=== PATIENT | female | born 1950 | race Caucasian/White ===

== ENCOUNTER 2023-12-28 14:34 | Inpatient (IN) | payer MEDICARE, SELFPAY ==
[2023-12-28] VITALS (14 sets, daily range): BP systolic 129–185; BP diastolic 72–105; PULSE 84–132; RESP 15–20; TEMP 36.3–36.6; O2SAT 94–100
--- NOTE | ~2023-12-28 | XR_ITS ---
EXAMINATION: XR chest 1V portable Exam Date/Time: 12/28/2023 14:40 CDT HISTORY: weakness Comparison: None. RESULT: Lines, tubes, and devices: None. Lungs and pleura: Leftward rotation. Mild diffuse interstitial opacities. Left costophrenic angle bl unting. Cardiomediastinal silhouette: Unremarkable. Other: No acute osseous or upper abdominal finding. IMPRESSION: Mild interstitial edema. Small left pleural effusion. Reviewed, dictated and finalized at location K.
--- NOTE | ~2023-12-28 | CT_ITS ---
EXAMINATION: CTA brain carotid DATE: 12/28/2023 16:08 INDICATION: left leg weakness TECHNIQUE: Computed tomographic angiography (CTA) of the head and neck was performed with 100 mL Omni paque-350 intravenous contrast. Automated exposure control and iterative reconstruction technique wer e employed. The dose-length product was 979.63 mGy-cm. Maximum intensity projection and volume rende red 3D-reconstructions were created by the technologist on a separate workstation. COMPARISON: CT brain, same date. FINDINGS: CTA HEAD: No large vessel occlusion, aneurysm, high flow vascular malformation, nidus or extravasation. Calcifi ed plaque in the bilateral cavernous carotids without severe stenosis. Multifocal areas of mild and m oderate noncalcified atherosclerotic narrowing in the intracranial vessels. CTA NECK: Aortic arch and proximal great vessels: Atherosclerotic calcifications at the visualized aortic arch and proximal great vessels. Right common carotid, carotid bifurcation, and internal carotid artery: Minimal calcified plaque.Ther e is 0% stenosis of the proximal right internal carotid artery relative to normal distal artery lumen diameter (NASCET criteria). Left common carotid, carotid bifurcation, and internal carotid artery: No plaque.There is 0% stenosis of the proximal left internal carotid artery relative to normal distal artery lumen diameter (NASCET criteria). Vertebral arteries: No significant plaque or stenosis. Vertebral arteries co-dominant. Other findings: Subcentimeter right thyroid lobe nodule which requires no additional evaluation at th is time. Chronic bilateral maxillary sinusitis. IMPRESSION: No large vessel intracranial occlusion, high-grade intracranial stenosis, or aneurysm. No carotid or vertebral artery occlusion, dissection, or significant stenosis. Reviewed, dictated and finalized at location K. IMPRESSION: No large vessel intracranial occlusion, high-grade intracranial stenosis, or an eurysm. No carotid or vertebral artery occlusion, dissection, or significant stenosis.
--- NOTE | ~2023-12-28 | CT_ITS ---
EXAMINATION: CT brain wo con DATE: 12/28/2023 16:08 INDICATION: left leg weakness . TECHNIQUE: Computed tomography (CT) of the head was performed without intravenous contrast. The mA wa s adjusted according to patient size. Iterative reconstruction technique was employed. The dose-lengt h product was 605.33 mGy-cm. COMPARISON: None. FINDINGS: No acute intracranial hemorrhage or extra-axial fluid collection. No hydrocephalus, mass, or herniation. No acute ischemic infarct. Unremarkable dural venous sinus attenuation. No acute osseous abnormality. Bilateral maxillary opacification with surrounding osseous sclerosis, the remaining aerated spaces ar e clear. Mild atrophy and moderate chronic white matter change. Atherosclerotic intracranial calcification. IMPRESSION: No acute intracranial process. Chronic bilateral maxillary sinusitis. Reviewed, dictated and finalized at location K.
--- NOTE | ~2023-12-28 | MR_ITS ---
EXAMINATION: MR brain/brain stem wo/w con DATE: 12/29/2023 12:34 INDICATION: Transient ischemic attack. TECHNIQUE: Magnetic resonance imaging (MRI) of the brain and brainstem was performed without and with 20 mL MultiHance intravenous contrast. COMPARISON: None. FINDINGS: There is an acute infarct involving the posterior limb right internal capsule. There are sc attered areas of nonspecific increased T2-weighted signal intensity in the cerebral white matter. The re is no intracranial hemorrhage or abnormal mass lesion. The ventricles are normal in size. There is mucosal thickening in the paranasal sinuses including complete opacification of the maxillary sinuse s with thickening of the sinus esteves, consistent with chronic sinusitis. The mastoid air cells are no rmal. IMPRESSION: 1. Acute infarct involving the posterior limb right internal capsule. 2. Mild nonspecific cerebral white matter disease, which likely represents chronic small vessel ische joaquin disease. 3. Chronic sinusitis. Reviewed, dictated and finalized at location A. IMPRESSION: 1. Acute infarct involving the posterior limb right internal capsule. 2. 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 3. Chronic sinusitis.
--- NOTE | 2023-12-28 14:39 | ECG_ITS ---
SEE SCANNED COPY FOR CONFIRMED REPORT MTDD
[2023-12-28 14:52] LABS: Basophils Absolute Auto 0.1 K/mm3 (0.0-0.1); Basophils Percent Auto 0.6 % (0.2-1.2); Eosinophils Absolute Auto 0.1 K/mm3 (0-0.3); Hematocrit 45.4 % (37.0-47.0); Hemoglobin 14.6 g/dL (12.0-15.0); Immature Granulocyte Absolute 0.04 K/mm3 (0.00-0.031); Immature Granulocyte Percent A 0.4 % (0-0.5); Lymphocytes Absolute Auto 1.38 K/mm3 (0.9-3.2); Lymphocytes Percent Auto 13.2 % (18.3-44.2); Mean Corpuscular HGB Conc 32.2 g/dl (32-36); Mean Corpuscular Hemoglobin 27.5 pg (26-34); Mean Corpuscular Volume 85.5 fl (80-100); Mean Platelet Volume 9.1 fl (7.4-10.4); Monocytes Absolute Auto 0.4 K/mm3 (0.1-0.6); Monocytes Percent Auto 3.8 % (2.6-8.5); Neutrophils Absolute Auto 8.5 K/mm3 (1.3-6.7); Platelet Count Result 324 k/mm3 (150-375); Red Blood Count 5.31 M/mm3 (4.2-5.4); Red Cell Distribution Width 13.2 % (11.5-14.5); White Blood Count 10.5 K/mm3 (4.5-10.0)
--- NOTE | 2023-12-28 14:53 | ED.EXTPRO ---
HPI - Extremity Problem General Chief complaint: Extremity Problem,Nontraumatic Stated complaint: LLE weakness, History of Present Illness HPI Narrative: 73-year-old female presenting to the emergency department for evaluation for left lower extremity weakness. Patient states that she woke up this morning she was not having any left leg weakness but developed over the course of the day. Patient called EMS for this and was found to be an a rapid heart rate, patient arrived in AFib with heart rate in the 130s. Patient denies any chest pain or shortness of breath. Patient denies any prior history of CVA. Patient denies any prior history of atrial fibrillation with RVR Related Data Home Medications Medication Instructions Recorded Confirmed No Home Medications 12/28/23 12/28/23 Allergies Allergy/AdvReac Type Severity Reaction Status Date / Time Sulfa (Sulfonamide Allergy Unknown Verified 12/28/23 15:10 Antibiotics) Review of Systems Review of Systems: All systems reviewed & are unremarkable except as noted in HPI and below PMFSH Social History Social History Smoking status: Never smoker Alcohol intake: never Substance use: never Substance use type: does not use Do You Feel Safe in your Home?: Yes Lack of Transportation: No Lack of Food: Never True Current Housing: I Have Housing Concerned About Future Housing: No Difficulty Paying Gas/Electric Bills: No Difficulty Paying for Meds: No Currently Unemployed: No Education: Bachelor's Degree Difficulty w/ Childcare or Family Care: No Spiritual care concerns: No Exam Narrative: APPEARANCE: Well appearing, no pain, no distress, well-nourished. HEAD: normocephalic, atraumatic. EYES: PERRLA/EOMI, conjunctivae clear. NOSE: Normal no drainage EARS:TMS clear with good light reflex. THROAT: Pharynx clear, no exudate. NECK: Supple. No adenopathy, no masses. RESPIRATORY: Airway patent, respirations nonlabored. Clear to auscultation bilaterally, no rales, rhonchi, wheezing. CARDIOVASCULAR: Regular rate and rhythm without murmurs rubs or gallops. ABDOMINAL: Soft, nontender, nondistended, normal bowel sounds MUSCULOSKELETAL: Moves all extremities. Strength/ROM intact, No edema, No calf tenderness. NEURO: Alert. Cranial nerves II through XII intact. No focal neurologic deficit SKIN: Warm, dry. Normal Color Course Vital Signs Vital signs: Vital Signs Temperature 97.3 F L 05/04/24 14:35 Pulse Rate 132 H 12/28/23 14:35 Respiratory Rate 16 12/28/23 14:35 Blood Pressure 148/89 H 12/28/23 14:35 Pulse Oximetry 98 12/28/23 14:35 Temperature 97.5 F L 12/28/23 18:42 Pulse Rate 98 12/28/23 18:42 Respiratory Rate 18 12/28/23 18:42 Blood Pressure 149/99 H 12/28/23 18:42 Pulse Oximetry 100 12/28/23 18:42 MDM - Extremity (Nontraumatic) MDM Narrative Medical decision making narrative: 73-year-old female presented emergency department for evaluation of AFib with RVR. The patient is afebrile with no leukocytosis and a stable hemoglobin. Patient's INR is 1.0. He patient had no significant acute abnormalities on her CMP, patient's troponins were negative. Patient does describe symptoms that are concerning for TIA. Head CT and CTA were negative for acute intracranial abnormality. Chest x-ray showed mild interstitial edema. Case was discussed with the hospitalist patient was accepted for admission. MRI was ordered for further TIA workup. Differential Diagnosis Differential diagnosis: Likely other (TIA, CVA) Lab Data 12/28/23 14:44 12/28/23 14:44 Labs: Lab Results 12/28/23 Range/Units 14:44 WBC 10.5 H (4.5-10.0) K/mm3 RBC 5.31 (4.2-5.4) M/mm3 Hgb 14.6 (12.0-15.0) g/dL Hct 45.4 (37.0-47.0) % MCV 85.5 (80-100) fl MCH 27.5 (26-34) pg MCHC 32.2 (32-36) g/dl RDW 13.2 (11.5-14.5) % Plt Count 324 (150-375) k/mm3 MPV 9.1 (7.4-10.4) fl Im
[2023-12-28 15:00] LABS: Alanine Aminotransferase 18 U/L (6-35); Albumin Level 4.3 g/dL (3.5-5.1); Alkaline Phosphatase 90 U/L (38-126); Anion Gap 10 mmol/L (4-12); Aspartate Amino Transferase 24 U/L (14-36); Bilirubin,Total 0.6 mg/dL (0.2-1.3); Blood Urea Nitrogen 21 mg/dL (7-17); Calcium 9.4 mg/dL (8.4-10.2); Carbon Dioxide 20 mmol/L (22-30); Chloride 112 mmol/L (98-107); Estimated CRCL calculation 51 ml/min; Estimated Glomerular Filt Rate 55; Glucose 181 mg/dL (65-110); Lipase 105 U/L (23-300); Potassium 3.7 mmol/L (3.4-5.0); Prothrombin Time 13.6 Seconds (11.1-14.7); Sodium 142 mmol/L (137-145)
[2023-12-28 15:11] LABS: Troponin I < 0.012 ng/mL (0.000-0.034)
[2023-12-28] MEDS: dilTIAZem HCl INJ 25 MG/5 ML VIAL 10 MG IV PUSH (15:13)
[2023-12-28] MEDS: dilTIAZem 100 MG/100 ML 100 MG/100 ML BAG IV CONT (15:13)
--- NOTE | 2023-12-28 15:34 | PC.NURSE ---
Pt c/o hot flash & red face Noted pt to have redness to neck & face. Dr. Dawson informed. Exam pt will continue with Rossana jeff
--- NOTE | 2023-12-28 16:35 | PC.NURSE ---
desk monitor continues to display A-Fib. Pt states hot flashes improved. Resting quietly.
--- NOTE | 2023-12-28 17:40 | ECG_ITS ---
SEE SCANNED COPY FOR CONFIRMED REPORT MTDD
--- NOTE | 2023-12-28 17:41 | PC.NURSE ---
RN spoke with Dr. Dawson concerning acceptable heart rate. Per Dr. Dawson would like heart rate below 100
--- NOTE | 2023-12-28 18:00 | PC.NURSE ---
IMU unable to take report at this time
[2023-12-28 18:20] LABS: Troponin I < 0.012 ng/mL (0.000-0.034)
--- NOTE | 2023-12-28 18:41 | ADMGEN ---
This patient, Ciara Barry, was admitted to IMU Room 207-01. Patient/family oriented to hospital policies and general routines including ID bracelet, bed and alarms, visiting hours, pain management, procedures, bathroom and other care routines, personal items, smoking policy, room service/diet, and visiting hours. Information on how to activate the Rapid Response Team has been discussed. Patient/Family are encouraged to report perceived risks to care and to ask questions if they do not understand what they are told or what they should do.
--- NOTE | 2023-12-28 19:08 | PM.IMHP ---
H&P: HPI History of Present Illness Date/Time: 12/28/23 18:30 Chief Complaint: Fall, left leg weakness. Narrative: This is a pleasant 73-year-old right-handed female with no reported medical history (she has not seen a doctor for over 5 years) who presented to the emergency department via EMS from home for evaluation after a fall and left leg weakness. The patient provides the following history. She reports feeling in her usual state of health when she got up this morning and she spent some time on the back patio enjoying the weather before going inside to get something to eat. When she got up from the lounge chair she noticed that she was having difficulties walking because her left leg was not doing what she wanted to do. The leg felt a bit weak with mild tingling. She made it to the kitchen at which time her son-in-law noticed that she was having difficulties getting around. He had to help her to the bathroom and when she was situated he went to the other room. While trying to sit down on the toilet she reports that she fell onto her buttocks and she was unable to get herself up and EMS was summoned. At that time her son-in-law noticed that the left side of her mouth seemed to be a bit droopy. She denies injury in the fall and states there was no head trauma or loss of consciousness. She is still having some difficulties with her left leg though it seems to be improved compared to earlier. Only her left leg is affected; she denies coordination issues with her left arm. She denies vertigo, visual changes, difficulty speaking and swallowing, palpitations, sensations of racing heart, chest pain, shortness a breath, nausea, vomiting, and sweats. In the ED: She was in rapid atrial fibrillation on arrival which is a new diagnosis for her. Blood pressures have been ranging in the 130s to 160 systolic. Labs were significant for a WBC count of 10.5, chloride 112, carbon dioxide 20, BUN 21, creatinine 1.00, glucose 181, troponin less than 0.012. Brain CT showed no acute intracranial process and chronic bilateral maxillary sinusitis. Head and neck CTA showed no large vessel intracranial occlusion, high-grade intracranial stenosis, aneurysm, or carotid or vertebral artery occlusion, dissection, or significant stenosis. She was started on a Cardizem drip and is being admitted in this setting for further workup. Review of Systems Review of Systems: Twelve systems were reviewed. No recent cold or flu symptoms. No known history of cardiac disease. Family members report that she snores softly. She denies paroxysmal nocturnal dyspnea. No daytime hypersomnolence. She has not had exertional chest pain or shortness of breath. She has no sensations of racing heart. Denies lower extremity edema and orthopnea. No history of thyroid disease. Denies significant caffeine and alcohol intake. Except as documented all other systems were reviewed and are negative. [facility] Past Medical History Medical History (Updated 12/28/23 @ 22:30 by Gunjan Davalos PA-C) Shingles Surgical History Surgical History (Updated 12/28/23 @ 22:28 by Gunjan Davalos PA-C) History of ventral hernia repair Social History Social History (Updated 12/28/23 @ 22:28 by Gunjan Davalos PA-C) Social History: Surrogate medical decision maker: Geni Epperson, daughter Code status: Full code. Smoking status: Never smoker Alcohol intake: never Substance use: never Substance use type: does not use Do You Feel Safe in your Home?: Yes Lack of Transportation: No Lack of Food: Never True Current Housing: I Have Housing Concerned About Future Housing: No Difficulty Paying Gas/Electric Bills: No Difficulty Paying for Meds: No Currently Unemployed: No Education: Bachelor's Degree Difficulty w/ Childcare or Family Care: No Spiritual care concerns: No Meds Home Medications and Allergies Home Medications Medication Instructions Recorded Confirmed T
[2023-12-28 21:14] LABS: Troponin I < 0.012 ng/mL (0.000-0.034)
[2023-12-29] VITALS (20 sets, daily range): BP systolic 130–168; BP diastolic 62–97; PULSE 59–93; RESP 16–20; TEMP 36.1–36.8; O2SAT 94–99
[2023-12-29] MEDS: dilTIAZem 100 MG/100 ML 100 MG/100 ML BAG 10 MG IV CONT (01:08)
[2023-12-29 04:04] LABS: Anion Gap 8 mmol/L (4-12); Blood Urea Nitrogen 16 mg/dL (7-17); Calcium 9.4 mg/dL (8.4-10.2); Carbon Dioxide 21 mmol/L (22-30); Chloride 113 mmol/L (98-107); Cholesterol 204 mg/dL (0-200); Estimated CRCL calculation 57 ml/min; Estimated Glomerular Filt Rate > 60; Glucose 123 mg/dL (65-110); HDL Direct 50 mg/dL; Magnesium 2.2 mg/dL (1.6-2.3); Potassium 3.7 mmol/L (3.4-5.0); Sodium 142 mmol/L (137-145); Triglycerides 117 mg/dL (<150)
[2023-12-29 04:15] LABS: LDL Cholesterol Direct 123 mg/dL
--- NOTE | 2023-12-29 05:48 | PCRCNOTE ---
Apnea link not completed last night, will be applied tonight (12/29/23)
--- NOTE | 2023-12-29 08:56 | ECG_ITS ---
SEE SCANNED COPY FOR CONFIRMED REPORT MTDD
--- NOTE | 2023-12-29 09:03 | PM.IMPN ---
Progress Note: A&P Assessment and Plan (1) Atrial fibrillation with rapid ventricular response: Code(s): I48.91 - Unspecified atrial fibrillation Status: Acute Assessment and Plan: 12/28 rate controlled on diltiazem 10 milligram/hour so attempt transition to p.o. diltiazem 60 mg po q 6 hr prior to MRI brain 12/28 add apixaban Cardiology consulted regarding newly diagnosed atrial fibrillation with probable stroke (2) Acute left hemiparesis: Code(s): G81.94 - Hemiplegia, unspecified affecting left nondominant side Status: Acute Assessment and Plan: Suspect cardioembolic stroke secondary to atrial fibrillation 12/28 MRI brain pending 12/28 ordered PT/OT/ST and evaluation for rehab (3) Hyperglycemia: Code(s): R73.9 - Hyperglycemia, unspecified Status: Acute Assessment and Plan: Hemoglobin A1c ordered (4) Hyperlipidemia: Code(s): E78.5 - Hyperlipidemia, unspecified Status: Acute Assessment and Plan: 12/28 Start atorvastatin (5) Elevated blood pressure reading: Code(s): R03.0 - Elevated blood-pressure reading, without diagnosis of hypertension Status: Acute Assessment and Plan: Controlled on diltiazem Subjective Date/time seen: 12/29/23 09:03 Interval history: 73-year-old female admitted 12/27 with new onset left facial droop slurred speech left-sided weakness. Atrial fibrillation with rapid ventricular rate at 131 on admission EKG. Treated with diltiazem drip with good rate control and at about 80 with 10 milligram/hour. 12/28 Left facial droop and left-sided weakness persist with mild slurring of speech. Tolerated a few bites of oatmeal and sips of water without choking or coughing. Denied chest pain shortness of breath palpitations edema. Denied GI or issues. Denied abnormal bleeding. Does not smoke or drink or use recreational substances. Review of Systems Review of Systems: All systems reviewed & are unremarkable except as noted in HPI and below Exam Narrative: SKIN: Anthony complexion with telangiectasias over forehead cheeks nose and chin. HEENT: PERRL, sclerae nonicteric, pharyngeal mucosa pink and intact NECK: No JVD CHEST: Clear to auscultation. Normal effort. HEART: NL S1/S2, IRREGULAR, NO AUDIBLE MURMUR ABDOMEN: BS+, soft, nontender, no mass, no bruits EXTREMITIES: No cyanosis, edema, or clubbing NEUROLOGIC: CN with mild left facial droop, DTRs increased left biceps, Babinski questionable upgoing on left, strength to dorsiflexion and plantar flexion 4/5 on left, cake decorator 4/5 on left, left upper extremity drift, finger-nose with difficulty on the left. Intact on the right. MUSCULOSKELETAL: No gross deformity to visual inspection. PSYCH: Alert. Oriented to person, place, and time. Objective Data Vital Signs Vital Signs: Vital Signs - 24 hr 12/28/23 14:35 12/28/23 15:13 12/28/23 15:21 Temperature 97.3 F L Pulse Rate 132 H 98 98 Respiratory Rate 16 20 Blood Pressure 148/89 H 129/72 129/72 Pulse Oximetry 98 100 Oxygen Delivery 12/28/23 16:32 12/28/23 15:46 12/28/23 16:33 Temperature 97.8 F Pulse Rate 102 H 101 H 94 Respiratory Rate 18 15 Blood Pressure 170/100 H 159/88 H 157/105 H Pulse Oximetry 94 100 Oxygen Delivery 12/28/23 16:45 12/28/23 17:02 12/28/23 17:17 Temperature 97.8 F Pulse Rate 95 99 97 Respiratory Rate 15 18 17 Blood Pressure 163/101 H 156/80 H Pulse Oximetry 100 98 100 Oxygen Delivery 12/28/23 17:31 12/28/23 18:07 12/28/23 18:42 Temperature 97.9 F 97.9 F 97.5 F L Pulse Rate 96 88 98 Respiratory Rate 16 20 18 Blood Pressure 174/89 H 159/85 H 149/99 H Pulse Oximetry 100 100 100 Oxygen Delivery 12/28/23 18:40 12/28/23 22:00 12/28/23 22:00 Temperature 97.8 F Pulse Rate 84 Respiratory Rate 16 Blood Pressure 185/94 H 178/90 H Pulse Oximetry 94 Oxygen Delivery Room Air 12/28/23 20:00 12/29/23 00:00 12/29/23 01:08 Temperature
[2023-12-29 09:27] LABS: Hemoglobin A1C 5.3 % (<5.7)
[2023-12-29] MEDS: APIXABAN 5 MG TABLET PO ×2 (09:45→20:52)
[2023-12-29] MEDS: dilTIAZem HCL 60 MG TABLET PO ×4 (09:45→23:30)
--- NOTE | 2023-12-29 10:16 | PM.CNCAR ---
Assessment and Plan Assessment and plan (1) Acute left hemiparesis: Code(s): G81.94 - Hemiplegia, unspecified affecting left nondominant side Status: Acute Assessment and Plan: Secondary to CVA likely cardioembolic from AFib. MRI pending (2) Hyperlipidemia: Code(s): E78.5 - Hyperlipidemia, unspecified Status: Acute Assessment and Plan: Statin added (3) Elevated blood pressure reading: Code(s): R03.0 - Elevated blood-pressure reading, without diagnosis of hypertension Status: Acute Assessment and Plan: Likely has undiagnosed hypertension. Some degree of permissive hypertension will be allowed due to the acute stroke but gradually over time will need to optimize. For now will use diltiazem for blood pressure control in addition to heart rate control (4) Atrial fibrillation with rapid ventricular response: Code(s): I48.91 - Unspecified atrial fibrillation Status: Acute Assessment and Plan: On diltiazem drip. This is of unknown duration. New diagnosis. Agree with anticoagulation with Eliquis 5 mg p.o. b.i.d. if okay with Neurology. Will pursue rate control for now. 2D echocardiogram Doppler is ordered will be reviewed. Further changes, additions workup and recommendations depending on the results of the echo. There is some concern that she may have a cardiomyopathy given the fact that she had AFib with RVR for unknown duration but no evidence of heart failure. Long-term decisions regarding rate versus rhythm control will be made depending on results of tests and response to treatment. History of Present Illness History of Present Illness Consult date/time: 12/29/23 10:16 Requesting physician: Sinan Carlisle MD Consult reason: atrial fibrillation Reason For Visit: AFib w/ RVR, L Leg Weakness Narrative: Reason for consultation: Atrial fibrillation Date of service 12/29/2023 Requesting provider: Dr. Carlisle History: Patient is a 73-year-old female who moved to this area about 4-5 years ago and lives with her daughter. She helps take care of grandchildren. She has not establish with a doctor since moving from [facility]. She reportedly has a history of white coat hypertension and had shingles about 5 years ago and was seen physicians routinely around that time. She presented to hospital yesterday because of some left-sided weakness especially noted involving the left lower leg. She states that it started around noon. Weakness has persisted but may be a little bit better. No other symptoms. TPA was not given. She was found to be in atrial fibrillation with rapid ventricular response and started on diltiazem drip. CT scan showed no acute stroke an MRI is pending. This morning she still has some left-sided weakness/in coordination. She otherwise denies any cardiac symptoms of chest pain, shortness of breath, syncope, presyncope, paroxysmal nocturnal dyspnea, orthopnea, edema, bleeding problems, palpitations. Review of Systems Review of Systems: All systems reviewed & are unremarkable except as noted in HPI and below Constitutional: Constitutional: Denies body ache(s) Eyes: Eyes: Denies blurry vision ENT: Reports Normal hearing present Cardiovascular: Cardiovascular: Denies chest pain and Denies palpitations Respiratory: Respiratory: Denies dyspnea Gastrointestinal: Gastrointestinal: Denies abdominal pain Genitourinary: Genitourinary: Denies hematuria Musculoskeletal: Musculoskeletal: Denies arthralgias Integumentary/Breasts: Skin/Breast: Denies dry skin Neurologic: Reports abnormal gait Comments: Left-sided weakness Psychiatric: Psychiatric: Denies anxiety Endocrine: Endocrine: Denies excessive sweating Hematologic/Lymphatic: Hematologic/Lymphatic: Denies easy bleeding Allergic/Immunologic: Allergic/Immunologic: Denies GI upset with certain foods PMFSH Past Medical History Medical History (Reviewed 0
--- NOTE | 2023-12-29 10:18 | PCSTNOTE ---
Please refer to the Bedside Swallow Evaluation in the EMR. Please note, silent aspiration cannot be ruled out at bedside.
[2023-12-29] MEDS: ACETAMINOPHEN 325 MG TABLET 650 MG PO (20:51)
[2023-12-29] MEDS: MELATONIN 5 MG TABLET PO (20:53)
[2023-12-29 21:15] LABS: Appearance Urine Cloudy (Clear); Bacteria Urine None Seen /hpf; Bilirubin Urine Negative (Negative); Blood Urine Negative (Negative); Color Urine Yellow (Yellow); Glucose Urine UA Negative (Negative); Ketones Urine Negative (Negative); Leukocyte Esterase Ur Trace LEU/UL (Negative); Nitrate Urine Negative (Negative); Non Pathogenic Casts 0-2; Protein Urine Negative (Negative); RBC Urine 0-2 /hpf (0-2); Specific Grav Ur 1.029 (1.001-1.035); Squamous Epithelial Cell Urine Occasional /hpf (Few); Urobilinogen Urine 0.2 mg/dL (<2.0); pH Urine 5.5 (5.0-9.0)
--- NOTE | 2023-12-29 21:28 | PC.NURSE ---
This patient, Ciara Barry, was transferred to [facility] on 12/29/23 at 2125. Personal belongings sent with patient. Report given to November RAJESH. Appropriate documentation sent with patient.
[2023-12-29 21:48] LABS: Add Urine Microscopic? YES
[2023-12-30] VITALS (9 sets, daily range): BP systolic 124–140; BP diastolic 66–86; PULSE 63–83; RESP 16–18; TEMP 35.9–36.6; O2SAT 97–98
--- NOTE | 2023-12-30 03:05 | PCRCNOTE ---
at 2230 12/29/2023- patient and patient family member refused apnealink. would like to try and rest tonight without having to do the test. can try again on 12/30/23 PM.
[2023-12-30] MEDS: dilTIAZem HCL 60 MG TABLET PO ×4 (05:18→23:03)
[2023-12-30] MEDS: APIXABAN 5 MG TABLET PO ×2 (09:28→20:50)
[2023-12-30] MEDS: ATORVASTATIN 20 MG TABLET PO (09:28)
--- NOTE | 2023-12-30 09:36 | PM.PNCARD ---
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 Some degree of permissive hypertension will be allowed due to the acute stroke but gradually over time will need to optimize. For now will use diltiazem for blood pressure control in addition to heart rate control (4) Atrial fibrillation with rapid ventricular response: Code(s): I48.91 - Unspecified atrial fibrillation Status: Acute Assessment and Plan: On diltiazem drip. This is of unknown duration. New diagnosis. Now on 60 mg of diltiazem orally Q 6. Will transition to either long-acting diltiazem or metoprolol depending on the results of the echocardiogram. If EF is preserved, will use diltiazem. If there is reduction in ejection fraction, will transition to metoprolol. Continue Eliquis. Echo pending. Will pursue rate control for now. There is some concern that she may have a cardiomyopathy given the fact that she had AFib with RVR for unknown duration but no evidence of heart failure. Long-term decisions regarding rate versus rhythm control will be made depending on results of tests and response to treatment. Subjective Date/time seen: 12/30/23 09:36 Interval history: 73-year-old female admitted slurred speech left-sided weakness. Found to be in atrial fibrillation. Date of service 12/30/2023: Transfer to medicine. Heart rate is controlled. On oral diltiazem. Echo pending. No chest pain or shortness breath. Weakness continues but is better Review of Systems Review of Systems: All systems reviewed & are unremarkable except as noted in HPI and below Constitutional: Constitutional: Denies body ache(s) and Denies excessive sweating Eyes: Eyes: Denies blurry vision ENT: Reports Normal hearing present Cardiovascular: Cardiovascular: Denies chest pain, Denies palpitations and Denies dyspnea Respiratory: Respiratory: Denies dyspnea Gastrointestinal: Gastrointestinal: Denies abdominal pain Genitourinary: Genitourinary: Denies hematuria Musculoskeletal: Musculoskeletal: Reports abnormal gait and Denies arthralgias Integumentary/Breasts: Skin/Breast: Denies dry skin Neurologic: Reports Normal hearing present and Reports abnormal gait Psychiatric: Psychiatric: Denies anxiety Endocrine: Endocrine: Denies excessive sweating and Denies palpitations Hematologic/Lymphatic: Hematologic/Lymphatic: Denies easy bleeding Allergic/Immunologic: Allergic/Immunologic: Denies GI upset with certain foods Exam Narrative: Awake alert oriented appears to be in no acute distress. Appears stated age Const: General: comfortable and no acute distress HENMT: Face/Nose/Sinus: Normal nares present Mouth: Yes moist mucous membranes Eyes: General: appearance normal, both eyes and all related structures Sclera: sclerae normal Neck: Neck: supple and no JVD Carotids: no bruits Chest: Other: No reproducible chest wall pain to palpation Resp: Effort & Inspection: normal respiratory effort Auscultation: clear to auscultation bilaterally Cardio: Rate: regular rate Rhythm: abnormal rhythm irregularly irregular Heart sounds: no murmurs GI: Inspection: non-distended Auscultation: normal bowel sounds Skin: General skin exam: normal color and no rashes or lesions noted Neuro: Cranial nerves: Yes Normal hearing present Speech: normal
--- NOTE | 2023-12-30 12:32 | PM.IMPN ---
Progress Note: A&P Assessment and Plan (1) Atrial fibrillation with rapid ventricular response: Code(s): I48.91 - Unspecified atrial fibrillation Status: Acute Assessment and Plan: pt transitioned off iv diltiazem drip now on oral diltiazem 60 mg qid new onset atrial fibrillation likely causing stroke awaiting ECHO full report pt seen by cardiology appreciate recommendation eliquis started for OAC (2) Acute left hemiparesis: Code(s): G81.94 - Hemiplegia, unspecified affecting left nondominant side Status: Acute Assessment and Plan: likely stroke secondary to atrial fibrillation MRI positive for stroke pt benefits from AR placement needing violeta steady presently continue PT/ OT on the floor consult neurology (3) Hyperglycemia: Code(s): R73.9 - Hyperglycemia, unspecified Status: Acute Assessment and Plan: stress related hbaic is nl pt is not DM (4) Hyperlipidemia: Code(s): E78.5 - Hyperlipidemia, unspecified Status: Acute Assessment and Plan: continue atorvastatin (5) Elevated blood pressure reading: Code(s): R03.0 - Elevated blood-pressure reading, without diagnosis of hypertension Status: Acute Assessment and Plan: Controlled on diltiazem Subjective Date/time seen: 12/30/23 12:32 Interval history: Interval history: 73-year-old right-handed female with no reported medical history (she has not seen a doctor for over 5 years) who presented to the emergency department via EMS from home for evaluation after a fall and left leg weakness. Lives at home wit daughter brought in because of limp and severe L leg weaknes. PT found to be in AF on admission. Pt seen by cardiology was on a Cardizem drip now on oral Cardizem. MRi completed showing Acute infarct involving the posterior limb right internal capsule. Pt awaiting echo and neurology consult. Daughter wanting AR placement, awaiting placement continue physical therapy in hospital Review of Systems Review of Systems: Much the same severe L sided weakness leg more than arm No speech or swallow problems noted No chest pain, SOB or heart palpitations mentioned Exam Narrative: General: Older lady pleasant HEENT: PERRLA CHEST: Clear to auscultation. HEART: RAte controlled AF ABDOMEN: BS+, soft, nontender, no mass, no bruits EXTREMITIES: No cyanosis, edema, or clubbing NEUROLOGIC: L mild facial droop and L leg 3/5 L arm 4/5 MUSCULOSKELETAL: No gross deformity to visual inspection. PSYCH: Alert. Oriented to person, place, and time. Objective Data Vital Signs Vital Signs: Vital Signs - 24 hr 12/29/23 14:24 12/29/23 14:48 12/29/23 14:00 Temperature Pulse Rate 71 Respiratory Rate Blood Pressure Pulse Oximetry Oxygen Delivery Room Air Room Air 12/29/23 16:00 12/29/23 16:00 12/29/23 13:00 Temperature 36.7 C Pulse Rate 66 59 L Respiratory Rate 19 Blood Pressure 130/63 139/77 Pulse Oximetry 94 Oxygen Delivery 12/29/23 16:00 12/29/23 20:00 12/29/23 20:29 Temperature 36.4 C Pulse Rate 70 60 Respiratory Rate 20 Blood Pressure 132/62 Pulse Oximetry 94 Oxygen Delivery Room Air 12/29/23 20:00 12/30/23 00:00 12/29/23 22:30 Temperature Pulse Rate 83 Respiratory Rate Blood Pressure Pulse Oximetry 94 96 Oxygen Delivery Room Air Room Air 12/30/23 04:04 12/30/23 04:00 12/30/23 08:00 Temperature 36.6 C Pulse Rate 63 64 68 Respiratory Rate 16 Blood Pressure 124/66 Pulse Oximetry 98 Oxygen Delivery Intake/Output Intake/Output: Intake & Output 12/27/23 12/28/23 12/29/23 12/30/23 23:59 23:59 23:59 23:59 Intake Total 61.3 1262.4 290 Output Total 640 1100 Balance -578.7 162.4 290 Meds/Results Medications: Active Medications Generic Name Dose Route Start Last Admin Trade Name Freq PRN Reason Stop Dose Admin Acetaminophen
[2023-12-30] MEDS: ACETAMINOPHEN 325 MG TABLET 650 MG PO (15:25)
[2023-12-30] MEDS: MELATONIN 5 MG TABLET PO (20:51)
--- NOTE | 2023-12-30 21:35 | PCRCNOTE ---
Patient refused apnea link test. Patient stated she has not slept and would like to rest tonight.
--- NOTE | 2023-12-30 22:37 | ECHO_ITS ---
Patient Info Name: Ciara Barry Age: 73 years : 1950 Gender: Female Ht: 63 in Wt: 219 lbs BSA: 2.15 m2 HR: 63 bpm BP: 124 / 66 mmHg Heart Rhythm: Atrial Fibrillation Technical Quality: Fair Exam Date: 12/30/2023 11:18 AM Exam Location: Echo Lab Patient Status: Inpatient Admit Date: 12/29/2023 Staff Ordering Physician: Gunjan Davalos PA-C Body Care Manager: Jazmine Grewal [facility] Attending Provider: Sinan Carlisle MD Referring Physician: Anoop BHATIA; Exam Type: CA echo doppler w bubble study Study Info Indications I48.1 - Persistent atrial fibrillation Complete two-dimensional, color flow and Doppler transthoracic echocardiogram is performed with agitated saline. Contrast/Agitated Saline Contrast/Ag. Saline: Agitated Saline Amount: 14.00 ml IV Access Condition: patent with no signs of infiltration Summary 1. Normal left ventricular size and systolic function. 2. Moderately dilated left atrium. 3. Mild mitral regurgitation. 4. Agitated saline contrast injection shows no evidence of intracardiac shunt. 5. Atrial fibrillation. Left Ventricle Left ventricular chamber dimension is normal. Left ventricular systolic function is normal, estimated at 55-60%. The left ventricular diastolic function is indeterminate. Right Ventricle Right ventricular chamber dimension is normal. Left Atria Left atrial chamber dimension is moderately enlarged. Right Atria Right atrial chamber dimension is normal. Aortic Valve The aortic valve is normal. Pulmonic Valve The pulmonic valve is normal. Mitral Valve The mitral valve has normal leaflets. There is mild mitral valve regurgitation. Tricuspid Valve The tricuspid valve leaflets are normal. There is trace tricuspid valve regurgitation. Pericardium/Pleural The pericardium appears normal. Aorta The aortic root size at the sinus of Valsalva is normal. Report Signatures
[2023-12-31] VITALS (7 sets, daily range): BP systolic 138–143; BP diastolic 78–89; PULSE 61–88; RESP 18–20; TEMP 35.9–36.3; O2SAT 97–100
[2023-12-31] MEDS: dilTIAZem HCL 60 MG TABLET PO (05:39)
[2023-12-31] MEDS: APIXABAN 5 MG TABLET PO (08:51)
[2023-12-31] MEDS: ATORVASTATIN 20 MG TABLET PO (08:51)
[2023-12-31] MEDS: dilTIAZem HCL CD 240 MG CAP.24HR PO (12:30)
--- NOTE | 2023-12-31 13:53 | PM.DS ---
DS: Admitting Diagnosis Discharge Date 12/31/23 Admitting Diagnosis Fall with left leg weakness. DS: Discharge Diagnosis Discharge Diagnosis (1) Atrial fibrillation with rapid ventricular response: Code(s): I48.91 - Unspecified atrial fibrillation Status: Acute (2) Acute left hemiparesis: Code(s): G81.94 - Hemiplegia, unspecified affecting left nondominant side Status: Acute (3) Hyperglycemia: Code(s): R73.9 - Hyperglycemia, unspecified Status: Acute (4) Hyperlipidemia: Code(s): E78.5 - Hyperlipidemia, unspecified Status: Acute (5) Elevated blood pressure reading: Code(s): R03.0 - Elevated blood-pressure reading, without diagnosis of hypertension Status: Acute (6) CVA (cerebral vascular accident): Code(s): I63.9 - Cerebral infarction, unspecified Status: Acute DS: Summary Hospital Course Reason for hospitalization: 73yo right-handed female with no reported medical history (she has not seen a doctor for over 5 years) who presented to the emergency department via EMS from home for evaluation after a fall and left leg weakness.?Please see H&P for details. Hospital Course: In the ED, she was in rapid atrial fibrillation which is a new diagnosis for her. Blood pressures ranging in the 130s to 160 systolic. Labs were significant for a WBC count of 10.5, chloride 112, carbon dioxide 20, BUN 21, creatinine 1, glucose 181, troponin <0.[address] showed no acute intracranial process and chronic bilateral maxillary sinusitis. Head and neck CTA showed no large vessel intracranial occlusion, high-grade intracranial stenosis, aneurysm. No carotid or vertebral artery occlusion, dissection, or significant stenosis. Chest x-ray showed mild interstitial edema and small left pleural effusion. She was started on a Cardizem drip and was admitted. Cardiology consulted. Rate became better controlled and she was changed to oral diltiazem. Eliquis added. Echo showing normal LV size and systolic function with EF 55-60%, moderate dilated left atrium, mild MR with no evidence of intracardiac shunt. Brain MRI showed acute infarct involving the posterior limb of the right internal capsule and mild nonspecific cerebral white matter disease. It was felt the acute CVA was embolic related to the AFib. Lipitor added. She worked with PT and OT. Bedside speech therapy evaluation showed no concerns (some documentation error by saying 'non-oral'). UA ordered on admission but later was unrevealing with trace LE and 6-10 WBC with occasional squamous cells. She denies dysuria, hematuria, abd pain, back pain, nausea or vomiting. UCx growing gram negative bacilli with 50-100K colonies. Since UA was not consistent with UTI and she is asymptomatic, devi hold on antibiotics and order a repeat UA with reflex to see if this develops into a UTI or more likely a contaminant. She overall did well and was able to be discharged on 12/31/23 to rehab. Status at Discharge Cognitive/behavioral status at discharge: stable Time Spent with Patient Time attestation: Total time spent providing and/or coordinating discharge services: 36 minutes Time spent: Greater than 30 minutes Specific discharge activities: discussed with pat and family about hospital course and discharge plan. Side effects of medications discussed. Exam Narrative: AF 96.6 143/89 88 18 97% ra Gen - NARD Chest - CTA bilaterally, nml RR CV - irregularly irregular; Tele showing AFib with controlled rate, occasional pause and PVCs Abd - Soft, NT/ND, Positive BS Ext - No pedal edema Neuro - Alert and oriented. Mild left sided weakness. nml speech. no facila asymmetry Psych - Nml mood and affect Skin - Warm and dry DS: Data Data Completed and Pending Labs on day of discharge: Preliminary micro results at discharge 12/29/23 21:02 Urine Culture - Preliminary Urine Clean Catch Gram negative bacilli isolate
--- NOTE | 2024-01-02 07:57 | PC.NURSE ---
Urine culture faxed to [facility]. Dr. Juarez requested this.
== END 2023-12-31 15:32 | DRG 308 ==
LOC: ANHED 17:07 → ANHIMU 17:59 → ANH3MED 12-29 22:02
PROVIDERS: Physician Assistant; Admitting Provider Internal Medicine; Emergency Provider Emergency Medicine; Visit Provider Internal Medicine
DX: I48.91 Unspecified atrial fibrillation (principal); I63.40 Cerebral infarction due to embolism of unspecified cerebral artery; G81.94 Hemiplegia, unspecified affecting left nondominant side; R03.0 Elevated blood-pressure reading, without diagnosis of hypertension; R73.9 Hyperglycemia, unspecified; R29.702 NIHSS score 2; E78.5 Hyperlipidemia, unspecified
CPT/HCPCS: 36415; 70450; 70496; 70498; 70553; 71045; 80048; 80053; 80061; 81001; 83036; 83690; 83735; 84443; 84484; 85025; 85610; 85730; 87077; 87086; 87088; 87186; 92507; 92522; 92610; 93005; 93306; 96365; 96366; 96375; 97110; 97161; 97165; 97530; 97535; 99285; A9270; A9577; G0378; Q9967